=== PATIENT | female | born 1995 | race Two or more races ===

== ENCOUNTER 2017-12-17 22:24 | Emergency (ER) | payer SELFPAY ==
[~2017-12-17] VITALS: Ht 165.1 cm; Wt 63.0 kg
[2017-12-17 22:28] VITALS: BP 134/76
== END 2017-12-18 00:29 | disposition left against medical advice (07) ==
LOC: ER 22:24
DX: F41.9 Anxiety disorder, unspecified (principal); Z53.21 Procedure and treatment not carried out due to patient leaving prior to being seen by health care provider

== ENCOUNTER 2020-06-26 22:31 | Emergency (ER) | payer MEDICAID ==
[~2020-06-26] VITALS: Ht 157.5 cm; Wt 64.3 kg
[2020-06-27 01:45] VITALS: BP 118/77
[2020-06-27] MEDS: HYDROCODONE/ACETAMINOPHEN 5/325MG TABLET PO ONE (01:45)
[2020-06-27] MEDS: BACITRACIN ZINC OINT UDPKT TOP ONE (03:28)
[2020-06-27] MEDS: LIDOCAINE HCL/EPINEPHRINE 1%-EPI 1:100,000 20 ML VIAL INFIL ONE (03:28)
== END 2020-06-27 03:42 | disposition home or self-care (01) ==
LOC: ER 22:31
DX: S81.012A Laceration without foreign body, left knee, initial encounter (principal); M25.562 Pain in left knee; W26.8XXA Contact with other sharp object(s), not elsewhere classified, initial encounter; Y93.89 Activity, other specified; Y92.89 Other specified places as the place of occurrence of the external cause; Y99.8 Other external cause status; Z90.49 Acquired absence of other specified parts of digestive tract
CPT/HCPCS: 12002; 73562; 81025; 99283; A4217; Z7610